=== PATIENT | male | born 1960 | race Caucasian/White ===

== ENCOUNTER 2017-03-05 15:36 | Emergency (ER) | payer OTHER ==
[~2017-03-05] VITALS: Ht 182.9 cm; Wt 85.0 kg
[2017-03-05 15:49] VITALS: BP 114/77; PULSE 78; RESP 16; O2SAT 95
[2017-03-05] MEDS ORDERED: IBUP-1827 PO (17:09)
[2017-03-05] MEDS ORDERED: TRAZ-115 PO (17:09)
[2017-03-05] MEDS ORDERED: OMEP20CA11 PO (17:09)
[2017-03-05] MEDS ORDERED: SERT20OR6 PO (17:09)
[2017-03-05] MEDS ORDERED: LISI-567 PO (17:09)
[2017-03-05] MEDS ORDERED: CYCL10TA9 PO (17:09)
[2017-03-05] MEDS ORDERED: DIVA500T14 PO (17:09)
[2017-03-05] MEDS ORDERED: DIVA250T12 PO (17:09)
[2017-03-05] MEDS ORDERED: ATEN25TA PO (17:09)
[2017-03-05] MEDS ORDERED: ZLP5T PO (17:09)
[2017-03-05] MEDS ORDERED: GABA-502 PO (17:09)
--- NOTE | 2017-03-05 17:32 | ED.REPORT ---
HPI-Back Pain 40 and Over Date of Service Mar 05, 2017 ED Provider: History of Present Illness: 56yo male with hx. of chronic back pain, recently relocated from [place] and "over did it" moving boxes. Denies any known specific injury. pain has been increased for 3-4 days. Additionally, he is homeless and sleeping in car. he acknowledges that that is no helping his back pain. No radiation of pain, no bowel/bladder disfunction. He does feel some bilateral lower extremity weakness. pain management visit pending May 05 in [place]. Nursing Notes Stated Complaint: BACK ISSUES Chief Complaint: Back Pain or Injury Nursing Notes Reviewed: Yes Allergies: Coded Allergies: aspirin (Verified Allergy, Mild, emesis, 03/05/17) Scheduled Atenolol (Atenolol) 25 Mg Tablet 25 MG PO DAILY Divalproex ER (Divalproex ER) 250 Mg Tab.er.24h 250 MG PO DAILY *DAILY DOSING ONLY* Swallowed whole without chewing to avoid local irritation of the mouth and throat. Divalproex ER (Divalproex ER) 500 Mg Tab.er.24h 500 MG PO DAILY *DAILY DOSING ONLY* Swallowed whole without chewing to avoid local irritation of the mouth and throat. Gabapentin (Gabapentin) 300 Mg Capsule 300 MG PO TID Lisinopril (Lisinopril) 20 Mg Tablet 20 MG PO DAILY Omeprazole (Omeprazole) 20 Mg Capsule.dr 20 MG PO DAILY Sertraline HCl (Sertraline) 20 Mg/1 Ml Oral.conc 25 MG PO DAILY Trazodone (Trazodone) 50 Mg Tablet 50 MG PO HS Scheduled PRN Cyclobenzaprine (Cyclobenzaprine) 10 Mg Tablet 10 MG PO TID PRN PRN Spasm Ibuprofen (Ibuprofen) 600 Mg Tablet 600 MG PO q 6hr PRN PRN For Pain Zolpidem (Ambien) 5 Mg Tablet 5 MG PO HS PRN PRN For Insomnia General Time Seen by MD: 17:31 Chief Complaint Back pain Hx Obtained From: Patient Arrived By: Walk-in Sudden in Onset?: No Symptom Duration: 4 days Caused by: Aggravated old injury Location: : Spinal lumbar area Quality: Same as prior, Sharp, Throbbing Radiation: : Does not radiate Severity: Current: Severe Severity: Maximum: Severe Associated with: Reports: Weakness both lower ext, Denies: Dysuria, Fever, Frequency, Inability to walk, Incontinence bladder, Incontinence bowel, Numbness left low ext, Numbness right low ext Pertinent Negative: Pt denies other symptoms Recent Healthcare: Recent doctor visit Similar Sx Previous: Yes Risk Factors )( AAA Risk Stratification Risk factors reviewed )( TAD Risk Stratification Risk factors reviewed Epidural Hematoma Risk Stratif No risk factors Epidural Abscess Risk Stratifi No risk factors Past Medical History Past Medical History Chronic back pain Past Surgical History back surgery Social History Alcohol Use: 1-3 per day Drug Use: Denies drug use Ambulatory Status Independent Review of Systems Constitutional: Denies: Chills, Fever Cardiovascular: Denies: Chest pain GI: Denies: Abdominal pain, Constipation, Nausea, Vomiting Male: Denies Incontinence Musculoskeletal: Reports: Back pain Neurologic: Reports: Problem walking, Denies: Bladder dysfunction, Bowel dysfunction, Focal weakness, Numbness Physical Exam Initial Vital Signs Vital Signs (First) Date Time Temp Pulse Resp B/P Pulse Ox O2 Delivery O2 Flow Rate FiO2 03/05/17 15:49 36 78 16 114/77 95 Room Air Initial VS: Vital signs normal General/Constitutional: Awake, Alert, No acute distress, Not toxic appearing Respiratory / Chest: Atraumatic, Breath sounds NL, Breath sounds = bilat Cardiovascular: Heart rate NL, Regular rhythm, Heart sounds NL Abdomen: Soft Flank / Spine / Paraspinal: Positive: Lumbar spine tender... (Low), Negative: Erythema present, Mass present, Swelling present Muscle Spasm / ROM: Positive: ROM decrease - mod Straight Leg Raise: Positive: Strt leg raise + L 60 deg, Strt leg raise + R 60 deg Sensory Deficit: Negative: Peroneal nerve deficit Gait Abnormality: Positive: Antalgic gait no saddle paresthesia Re-Eval/Medical Decision Med Decision/Clinical Course [id number] acute exacerbation of chronic back pain, no worrisome features that would require advanced imaging at [facility]. Encouraged establishing care locally. Discussed multipronged approach to aiding back discomfort and need to avoid opioids for chronic issues. Counseled Regarding: Diagnosis, Need for follow-up, When/why to return to ED Discharge & Departure Impression: Primary Impression: Low back pain Chronicity: chronic Back pain laterality: bilateral Sciatica presence: without sciatica Qualified Code: M54.5 - Low back pain Disposition: Home Patient Instructions: Acute Low Back Pain (ED) Additional Instructions: Rest, local heat, elevate knees prasanna chest. Continue cyclkobenzaprine and Gabapentin. Begin Lidoderm patch and short course of prednisome. Follow up with Residency clinic. Return to ER if anything worsens. Referrals: [facility] 1 Day recheck, establish care EDSupervising Provider for APC: Nic Padron MD, Christopher R PAC Mar 05, 2017 17:32
[2017-03-05] MEDS ORDERED: LIDO700A6 TP (18:12)
[2017-03-05] MEDS ORDERED: PRE20 PO (18:12)
[2017-03-05 18:18] VITALS: BP 133/66; PULSE 80; O2SAT 94
== END 2017-03-05 18:20 | disposition home or self-care (01) ==
LOC: SED 15:36
DX: M54.5 Low back pain (principal); X50.0XXA Overexertion from strenuous movement or load, initial encounter; Y93.89 Activity, other specified; Y92.9 Unspecified place or not applicable; Y99.8 Other external cause status; Z59.0 Homelessness; Z88.6 Allergy status to analgesic agent

== ENCOUNTER 2017-04-12 20:14 | Emergency (ER) | payer OTHER ==
[~2017-04-12] VITALS: Ht 182.9 cm; Wt 95.9 kg
[~2017-04-12 20:14] MED LIST: ATEN25TA PO; CYCL10TA9 PO; DIVA250T12 PO; DIVA500T14 PO; GABA-502 PO; IBUP-1827 PO; LIDO700A6 TP; LISI-567 PO; OMEP20CA11 PO; PRE20 PO; SERT20OR6 PO; TRAZ-115 PO; ZLP5T PO
[2017-04-12 20:18] VITALS: BP 146/81; PULSE 99; RESP 18; O2SAT 95
--- NOTE | 2017-04-12 20:33 | ED.REPORT ---
HPI-General Illness Date of Service April 12, 2017 ED Provider: Howard Ortiz MD 56y/o male with a hx of HTN, COPD and chronic back pain presents to the ED complaining of right side groin pain, onset yesterday, exacerbated with heavy lifting. The pt describes the pain as burning and stabbing pain. Associated sx include dysuria, onset today. He denies fever, nausea, vomiting and pain with coughing. He does not have a hx of hernias. The pt also complains of intermittent left arm and foot numbness for the last two weeks. Nursing Notes Stated Complaint: RIGHT SIDE GROIN PAIN, LEFT SIDE NUMBNESS Chief Complaint: General Complaint Nursing Notes Reviewed: Yes Allergies: Coded Allergies: aspirin (Verified Allergy, Mild, emesis, 04/12/17) Scheduled Atenolol (Atenolol) 25 Mg Tablet 25 MG PO DAILY Divalproex ER (Divalproex ER) 250 Mg Tab.er.24h 250 MG PO DAILY *DAILY DOSING ONLY* Swallowed whole without chewing to avoid local irritation of the mouth and throat. Divalproex ER (Divalproex ER) 500 Mg Tab.er.24h 500 MG PO DAILY *DAILY DOSING ONLY* Swallowed whole without chewing to avoid local irritation of the mouth and throat. Gabapentin (Gabapentin) 300 Mg Capsule 300 MG PO TID Lidocaine (Lidoderm) 700 Mg Adh..patch 1 PATCH TP UD Lisinopril (Lisinopril) 20 Mg Tablet 20 MG PO DAILY Omeprazole (Omeprazole) 20 Mg Capsule.dr 20 MG PO DAILY Prednisone (PredniSONE) 20 Mg Tablet 40 MG PO DAILY Sertraline HCl (Sertraline) 20 Mg/1 Ml Oral.conc 25 MG PO DAILY Trazodone (Trazodone) 50 Mg Tablet 50 MG PO HS Scheduled PRN Cyclobenzaprine (Cyclobenzaprine) 10 Mg Tablet 10 MG PO TID PRN PRN Spasm Ibuprofen (Ibuprofen) 600 Mg Tablet 600 MG PO q 6hr PRN PRN For Pain Zolpidem (Ambien) 5 Mg Tablet 5 MG PO HS PRN PRN For Insomnia General Time Seen by MD: 20:17 Chief Complaint Multip medical complaints Hx Obtained From: Patient Arrived By: Walk-in Sudden in Onset?: No Past Medical History Past Medical History Chronic back pain Past Surgical History back surgery Social History Alcohol Use: 1-3 per day Drug Use: Denies drug use Ambulatory Status Independent Review of Systems Reports: Right sided groin pain Full Review of Systems Constitutional: Denies: Fever GI: Denies: Nausea, Vomiting Male: Reports Dysuria Complete sys rev & neg: except as marked. Physical Exam Vital Signs Vital Signs Date Time Temp Pulse Resp B/P Pulse Ox O2 Delivery O2 Flow Rate FiO2 04/12/17 20:18 36.6 99 18 146/81 95 Room Air Initial VS: Reviewed Neck: Full range of motion Extremities: Vascular intact, Neuro intact, No swelling, No tenderness Skin: Warm, Dry, No cyanosis Neurologic: Alert, Oriented, Nonfocal General/Constitutional: Awake, Alert, Cooperative Head / Eyes: Atraumatic, Normocephalic Respiratory / Chest: Atraumatic, Breath sounds = bilat, No rales, No rhonchi Scattered wheezes. Cardiovascular: Heart rate NL, Regular rhythm, Heart sounds NL, No gallop, No murmurs, No rubs Abdomen: Atraumatic, Soft, Non-tender, No guarding, No rebound, BS normoactive Male Genitourinary: Atraumatic, Inspection NL, Penis NL, No penile discharge, No meatal blood, Testes NL, Epididymis NL, No mass, No hernia, Scrotal/perineal skin NL Normal circumcised male genitalia. Testes nontender Interpretation & Diagnostics Procedure: CT KUB ([id number]) Impression: 1) No acute pathology in the abdomen or pelvis 2) Right renal scarring with associated increased density likely representing dystrophic calcification. Recommend confirmation with ultrasound on a nonemergent basis. Signed by Konrad Bhatt m.d. 04/12/17 21:14 Lab Results Interpretation Test 04/12/17 21:50 Urine Color Yellow (YELLOW) Urine Appearance Clear (CLEAR,HAZY) Urine pH 5.5 (5.0-8.0) Urine Specific [place] 1.020 (1.003-1.035) Urine Protein Negativemg/dL (NEG,TRACE) Urine Glucose (UA) Negativemg/dL (NEGATIVE) Urine Ketones Negativemg/dL (NEGATIVE) Urine Occult Blood Negative (NEGATIVE) Urine Nitrite Negative (NEGATIVE) Urine Bilirubin Negative (NEGATIVE) Urine Urobilinogen Normalmg/dL (NORMAL) Urine Leukocyte Esterase Trace (NEGATIVE) Urine RBC 0-2/hpf (0-2) Urine WBC 0-5/hpf (0-5) Urine Epithelial Cells Occasional/hpf (NONE-MOD) Urine Crystals None seen (NONE SEEN) Urine Bacteria Few/hpf (NONE-FEW) Urine Hyaline Casts 5/20/lpf (NONE) Urine Granular Casts None seen (NONE SEEN) Urine Waxy Casts None seen (NONE SEEN) Urine Red Blood Cell Casts None seen (NONE SEEN) Urine White Blood Cell Casts None seen (NONE SEEN) Urine Mucus None seen (None Seen) Urine Trichomonas None seen (NONE SEEN) Urine Yeast None (NONE SEEN) Urinalysis Comment None Urine Culture Reflexed Indicated Re-Eval/Medical Decision Source of Hx: Old records Time of Eval: 20:53 Re-Evaluation/Progress Note: Rechecked pt. Informed the pt of the need for a urine test and CT scan to check for a hernia. The pt understands and agrees with the plan. All questions addressed. Time of Eval: 22:13 Patient Status: Condition improved Re-Evaluation/Progress Note: Rechecked pt. Discussed lab, imaging results and diagnosis. Informed the pt of the plan to discharge. Pt understands and agrees with plan. F/U instructions and RTER warning given. All questions addressed. Counseled Regarding: Diagnosis, Lab results, Need for follow-up, When/why to return to ED Discharge & Departure Primary Impression: Inguinal muscle strain Encounter type: initial encounter Qualified Code: S39.013A - Strain of muscle, fascia and tendon of pelvis, initial encounter Disposition: Home Discharge Condition All VS Reviewed: Yes Condition: Stable Patient Instructions: Muscle Strain (ED) Additional Instructions: ED evaluation included interview exam UA and CT of pelvis. There is no hernia, urinary infection or stone. There does not appear to be testicular inflammation. This is consistent with a muscle strain. Ice to sore areas, keep ice wrapped in a towell. Rest. Ibuprofen for pain- use this short term. Contact the resident's clinic or the MD of your choice for primary care. Return to ED for fevers, vomiting, increasing pain. Referrals: [facility] Scribe Attestation Portions of this note were transcribed by Sadie Garcia. I, , personally performed the history, physical exam and medical decision-making;I reviewed and confirmed the accuracy of the information in the transcribed note. Signed by Keith Fall. 04/12/17 22:28 copies to: [facility] Howard Ortiz MD April 12, 2017 20:33 Sadie Garcia April 12, 2017 20:37
--- NOTE | 2017-04-12 21:21 | DRSVH ---
PROCEDURE: CT KUB ([id number]) INDICATIONS: r groin pain TECHNIQUE: Noncontrast 5 mm thick sections acquired from the diaphragms to the symphysis. 5 mm thick coronal an d sagittal reformats were then performed. For radiation dose reduction, the following was used: aut omated exposure control, adjustment of mA and/or kV according to patient size. COMPARISON: None. FINDINGS: Image quality: Excellent. Lung bases: Lung bases are clear. Heart size is normal. Urinary system: Right renal scarring with an associated 1.5 cm area of increased density at the site of parenchymal loss. Normal left renal size and contour. No kidney stones. No hydronephrosis or p erinephric fat stranding. Both ureters appear non-dilated throughout their expected courses. Bladde r wall thickness is normal; no calcified bladder stones. Other solid organs: Liver and spleen are normal in size. Gallbladder is present. Pancreas is niki l in contours. No adrenal nodules. Peritoneum and bowel: Unenhanced bowel loops demonstrate normal wall thickness and caliber. No free fluid or air. Nodes and vessels: No retroperitoneal or mesenteric adenopathy by size criteria. Aorta and inferior vena cava are normal in caliber. Abdominal wall: No ventral hernias. Pelvis: No free pelvic fluid. No inguinal hernias or adenopathy. Bones: No suspicious bony lesions. No vertebral body compression fractures. IMPRESSION: 1. No acute pathology in the abdomen or pelvis. 2. Right renal scarring with associated increased density likely representing dystrophic calcificatio n. Recommend confirmation with ultrasound on a nonemergent basis. Dictated by: Konrad Bhatt M.D. on 04/12/2017 at 21:14 Approved by: Konrad Bhatt M.D. on 04/12/2017 at 21:19
[2017-04-12 22:09] LABS: APPEARANCE,URINE CLEAR (CLEAR,HAZY); COLOR,URINE YELLOW (YELLOW); OCCULT BLOOD,URINE NEGATIVE (NEGATIVE); PH,URINE 5.5 (5.0-8.0); UROBILINOGEN,URINE NORMAL (NORMAL)
== END 2017-04-12 22:50 | disposition home or self-care (01) ==
LOC: SED 20:14
DX: S39.013A Strain of muscle, fascia and tendon of pelvis, initial encounter (principal); R30.0 Dysuria; R20.0 Anesthesia of skin; X50.0XXA Overexertion from strenuous movement or load, initial encounter; Y92.9 Unspecified place or not applicable; Y99.9 Unspecified external cause status; Y93.9 Activity, unspecified; Z88.6 Allergy status to analgesic agent